=== PATIENT | female | born 1975 | race Caucasian/White ===

== ENCOUNTER 2016-05-26 17:27 | Emergency (ER) ==
[2016-05-26 18:31] LABS: URINE SOURCE CLEAN CATCH
[2016-05-26] MEDS ORDERED: LEVAQUIN 750 MG/D5W 150 ML IV ONE (18:38)
[2016-05-26] MEDS ORDERED: NS 1,000 ML IV PRN (18:38)
[2016-05-26 18:54] LABS: BILIRUBIN URINE NEGATIVE (NEGATIVE); BLOOD URINE 3+ (NEGATIVE); COLOR YELLOW; GLUCOSE URINE NEGATIVE (NEGATIVE); LEUKOCYTES URINE 2+ (NEGATIVE); NITRITE URINE NEGATIVE (NEGATIVE); PH URINE 6.5; PROTEIN URINE 2+(100 mg/dL) mg/dL (NEGATIVE); SP GRAVITY URINE 1.015; UROBILINOGEN URINE 4+(12 mg/dL)
[2016-05-26 18:55] LABS: CLARITY VERY CLOUDY (CLEAR); URINE CULTURE PL NEEDED? YES; URINE EPITHELIAL CELLS >10 /HPF (<10); URINE WBC TNTC /HPF (<10)
--- NOTE | 2016-05-26 19:07 | PROVIDER DOCUMENTATION ---
HPI-General Adult - General Chief Complaint: Flank Pain Stated Complaint: BACK/NECK PX/FEVER Time Seen by Provider: 05/26/16 18:37 Source: patient Allergies/Adverse Reactions: Patient Allergies Allergy/AdvReac Type Severity Reaction Status Date / Time No Known Allergies Allergy Verified 05/26/16 18:05 Home Medications: Home Medication List Medication Instructions Recorded Confirmed Last Taken Type Levofloxacin [Levaquin] 750 mg PO DAILY #7 tablet 05/26/16 Unknown Rx - History of Present Illness -Gen Adult Nature of Presenting Problems: PT IS A 40YOF PRESENTING TO THE ED C/O BACK/FLANK PAIN. PT STATES SYMPTOMS BEGAN LAST WEDNESDAY WITH BILATERAL FLANK PAIN, WITH INTERMITTENT FEVER, DECREASED APPETITE, AND FEELING BAD. PT DENIES BM SINCE LAST WEDNESDAY AND EVERYTHING SHE ATTEMPTS TO EAT TASTES HORRIBLE. NO OTHER COMPLAINTS AT THIS TIME Location of Pain/Injury: reports: back Pain Radiation: reports: flank (L), flank (R) Quality of Pain: reports: aching, sharp Severity: reports: moderate Onset/Duration: reports: last week Timing: reports: still present Context/Activities at Onset: reports: light activity Modifying Factors: improves with: nothing Associated Symptoms: reports: fatigue, fever/chills, genitourinary problems, loss of appetite, malaise, pain with inspiration. denies: chest pain, constipation, diarrhea, nausea, swelling/mass in abdomen, vomiting Similar Symptoms Previously?: No Recently seen or treated by another doctor?: No Review of Systems - Adult - REVIEW OF SYSTEMS - ADULT Constitutional: reports: see HPI, chills, fever, fatique Eyes: reports: no symptoms reported Ears, Nose, Mouth & Throat: reports: no symptoms reported Cardiovascular: reports: see HPI, heart murmur (2/6 SYS MURMUR). denies: chest pain, syncope Respiratory: reports: no symptoms reported Gastrointestinal: reports: no symptoms reported Genitourinary: reports: see HPI, flank pain. denies: frequent UTI's, incontinence, urgency Musculoskeletal: reports: no symptoms reported Integumentary: reports: no symptoms reported Neurological: reports: no symptoms reported Psychiatric: reports: no symptoms reported Endocrine: reports: no symptoms reported Hematologic/Lymphatic: reports: no symptoms reported Allergic/Immunologic: reports: no symptoms reported All Other Systems: Reviewed and Negative Past History - Adult - PAST MEDICAL HISTORY-ADULT Review of Records: reports: Old Records Reviewed, Nursing Assessment Review, Medications Reviewed, Social history reviewed & non-contributory. Major Childhood Illnesses: reports: denies history Cardiovascular: reports: denies history Respiratory: reports: denies history Gastrointestinal: reports: denies history Obstetrical/Gynecological: reports: denies history Genitourinary: reports: denies history Musculoskeletal: reports: denies history Neurological: reports: denies history Psychiatric: reports: depression Endocrine/Immune: reports: anemia, thyroid disorder Other Conditions: reports: denies history - PRIOR SURGERIES/PROCEDURES Surgical/Procedure History: reports: gastric bypass (2005) - PRIOR HOSPITALIZATIONS Prior Hospitalizations: reports: none - IMMUNIZATION STATUS Childhood Immunizations: UTD, See Nurse Assessment Flu Vaccine: See Nurse Assessment - FAMILY HISTORY Family History: reviewed, not pertinent - SOCIAL HISTORY Smoking: cigarettes, greater than 1 pack/day Provider spent 3-5 mins advising pt. on dangers of tobacco.: Discussed manners to quit use, and f/u contacts for add'l counseling. Substance Use: none/never, denies Alcohol Use Frequency: never Living Situation: family Physical Exam-General - PHYSICAL EXAM-ADULT Initial Vital Signs Reviewed: Yes - CONSTITUTIONAL General Appearance: alert, moderate distress. negative: appears well, obese, combative - EYES Eyes: PERRL/EOMI, pink conjunctivae, fundi clear, no AV nicking - HEAD, EARS, NOSE, MOUTH & THROAT HENMT: normocephalic/atraumatic, moist mucous membranes, normal ENT inspection, TMs normal, pharynx normal - NECK Neck: non-tender, full range of motion, supple, normal inspection - RESPIRATORY Respiratory: chest non-tender, no respiratory distress, no accessory muscle use , crackles (RIGHT LOWER BASE), pain on inspiration. negative: lungs clear, normal breath sounds, no pleuratic chest pain - CARDIOVASCULAR Cardiovascular: normal peripheral pulses, no edema, no gallop, no JVD, tachycardia, systolic murmur (2/6). negative: regular rate, rhythm, no murmur - GASTROINTESTINAL (ABDOMEN) Abdominal Exam: normal bowel sounds, non tender, soft, no organomegaly, no pulsatile mass - LYMPHATIC Lymphatic: no adenopathy - MUSCULOSKELETAL Back Exam: no vertebral tenderness, CVA tenderness (BILATERAL). negative: normal inspection, no CVA tenderness Extremity: normal range of motion, non-tender, normal gait, normal inspection, no pedal edema, no calf tenderness, normal capillary refill, pelvis stable - SKIN Integumentary: normal turgor, warm/dry, pallor. 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 negative: abnormal cerebellar tests - PSYCHIATRIC Psych/Mental Status: normal mood/affect, normal thought content, normal thought process, oriented x 3 Progress - PLAN OF CARE/RESULTS Progress/Plan/Lab Results: Laboratory Tests 05/26/16 05/26/16 18:06 18:06 Urine Source CLEAN CATCH Urine Color YELLOW Urine Clarity VERY CLOUDY A Urine pH 6.5 Ur Specific [place] 1.015 Urine Protein 2+(100 mg/dL) A Urine Ketones TRACE Urine Blood 3+ A Urine Nitrite NEGATIVE Urine Bilirubin NEGATIVE Urine Urobilinogen 4+(12 mg/dL) Urine Microscopic RBC 10-20 A Urine WBC 2+ A Urine Microscopic WBC TNTC A Ur Epithelial Cells >10 A Urine Bacteria 1+ Urine Glucose NEGATIVE Influenza A (Rapid) NEGATIVE Influenza B (Rapid) NEGATIVE Orders Category Date Time Status BMP [BASIC METABOLIC PANEL] [CHEM] Stat Lab 05/26/16 18:38 Ordered CBC WITH DIFF [HEME] Stat Lab 05/26/16 18:[address] Stat Lab 05/26/16 18:06 Completed UA [URINALYSIS PL W/POSS RFLX CULT] [URINALYSIS] Stat Lab 05/26/16 18:06 Completed URINE CULTURE [RM] Routine Lab 05/26/16 18:56 Ordered 0.9% Sodium Chloride Inj [Ns] 1,000 ml Med 05/26/16 18:38 Active IV 250 mls/hr Levofloxacin 750 mg/D5w [Levaquin 750 mg/D5w] 150 ml Med 05/26/16 18:38 Active IV NOW Vital Signs - 24 hr 05/26/16 05/26/16 18:02 18:52 Temperature 102.7 F H 101.2 F H Pulse Rate 117 H Respiratory 18 Rate Blood Pressure 117/62 O2 Sat by Pulse 97 Oximetry Departure - Departure Time of Disposition Order: 19:08 DIAGNOSIS: Pyelonephritis Disposition: HOME 01 Certified Medical Emergency: Emergent Condition: Stable Attestation - Scribe Verification/Attestation Scribe:: Philomena Sandoval Acting as Scribe for:: Edgardo Metz Scribe documention review:: This chart was documented by a scribe and accurately reflects the service the provider performed and the decisions made by the provider. Physician Attestation - Physician Attestation I, the provider, attest to the following statement:: Edgardo Metz Physician documentation Attestation:: This documentation recorded by the scribe accurately reflects the service I personally performed and the decisions made by me.
[2016-05-26 19:16] LABS: MANUAL DIFF NEEDED? NO
[2016-05-26 19:20] LABS: BASO% 0.6 % (0.0-0.8); EOS# 0.05 X1000 (0.0-0.7); EOS% 0.3 % (0.0-10.0); HEMATOCRIT 34.7 % (37.0-47.0); HEMOGLOBIN 11.7 g/dL (12.0-16.0); IMM GRAN# 0.23 X1000 (0.0-0.04); IMM GRAN% 1.3 % (0.0-0.5); LYMPH# 1.89 X1000 (1.2-3.4); MCHC 33.7 g/dL (33-37); MCV 91.8 FL (81-99); MONO# 2.42 X1000 (0.11-0.59); MONO% 14.1 % (1.7-9.3); MPV 11.9 FL (7.4-10.4); NEUT% 72.7 % (42.2-75.2); PLT 375 X1000 (130-400); RBC 3.78 XMIL (4.2-5.4)
[2016-05-26 19:31] LABS: AGAP 15; BUN 15 mg/dL (8-22); CALCIUM 8.8 mg/dL (8.8-10.2); CHLORIDE 94 mmol/L (98-107); COSMO 266; POTASSIUM 3.2 mmol/L (3.5-5.1); SODIUM 132 mmol/L (136-145); TCO2 23 mmol/L (25-35)
[2016-05-26 21:38] VITALS: BP 94/57
== END 2016-05-26 21:44 | disposition home or self-care (01) ==
LOC: P.ED 17:27
DX: N12 Tubulo-interstitial nephritis, not specified as acute or chronic (principal); M54.9 Dorsalgia, unspecified; R10.9 Unspecified abdominal pain; R50.9 Fever, unspecified; R53.83 Other fatigue; E07.9 Disorder of thyroid, unspecified; R53.81 Other malaise; R00.0 Tachycardia, unspecified; R01.1 Cardiac murmur, unspecified; F17.210 Nicotine dependence, cigarettes, uncomplicated; Z71.6 Tobacco abuse counseling; Z98.84 Bariatric surgery status
CPT/HCPCS: 80048; 81001; 85025; 87088; 87804; 96365; 96366; J7030